=== PATIENT | female | born 1975 | race Caucasian/White ===

== ENCOUNTER 2019-08-06 08:32 | Observation (INO) ==
[2019-08-06] MEDS ORDERED: chlorproMAZINE 25 MG TABLET PO PRN (12:14)
[2019-08-06] MEDS ORDERED: ALPRAZolam 0.25 MG TABLET PO PRN (12:14)
[2019-08-06] MEDS ORDERED: LACTULOSE 20 GM/30 ML UDCUP PO PRN (12:14)
[2019-08-06] MEDS ORDERED: MAGNESIUM HYDROXIDE SUSP 30 ML UDCUP PO PRN (12:14)
[2019-08-06] MEDS ORDERED: MYLANTA/LIDO VISC 2:1 300 ML BOTTLE SWISH/SPIT PRN (12:14)
[2019-08-06] MEDS ORDERED: PROMETHAZINE INJ 25 MG in SODIUM CHLORIDE 0.9% 50 ML IV PRN (12:14)
[2019-08-06] MEDS ORDERED: diphenhydrAMINE CAP 25 MG CAPSULE PO PRN (12:14)
[2019-08-06] MEDS ORDERED: BENZTROPINE 2 MG/2 ML AMP IV PRN (12:14)
[2019-08-06] MEDS ORDERED: MYLANTA/LIDO VISC 2:1 300 ML BOTTLE SWISH/SWAL PRN (12:14)
[2019-08-06] MEDS ORDERED: ACETAMINOPHEN 325 MG TABLET PO PRN (12:14)
[2019-08-06] MEDS ORDERED: ALUMINUM/MAGNES/SIMETH MAX STR 30 ML UDCUP PO PRN (12:14)
[2019-08-06] MEDS ORDERED: LOPERAMIDE 2 MG CAPSULE PO PRN ×2 (12:14)
[2019-08-06] MEDS ORDERED: TEMAZEPAM 7.5 MG CAPSULE PO PRN (12:14)
[2019-08-06] MEDS ORDERED: chlorproMAZINE INJ 50 MG in SODIUM CHLORIDE 0.9% 100 ML IV PRN (12:14)
[2019-08-06] MEDS ORDERED: guaiFENesin 200 MG/10 ML UDCUP PO PRN (12:14)
[2019-08-06] MEDS ORDERED: chlorproMAZINE INJ 25 MG in SODIUM CHLORIDE 0.9% 100 ML IV PRN (12:14)
[2019-08-06] MEDS ORDERED: traMADol 50 MG TABLET PO PRN (12:14)
[2019-08-06] MEDS ORDERED: ONDANSETRON 4 MG/2 ML VIAL IV PRN (12:14)
[2019-08-06] MEDS ORDERED: ENOXAPARIN 150 MG/ML SYRINGE SUBCUT SCH (12:30)
[2019-08-06 12:39] LABS: Basophils # 0.1 10*3/uL (0.0-0.2); Basophils % 0.6 % (0.0-0.8); Eosinophils # 0.1 10*3/uL (0.0-0.87); Eosinophils % 1.2 % (0.00-10.9); Hematocrit 35.7 VOL% (35.7-47.0); Hemoglobin 11.3 GM/DL (12.0-16.0); Immature Granulocytes % 0.4 %; Immature Granulocytes Absolute 0.04 #; Lymphocytes # 2.2 10*3/uL (1.4-4.0); Lymphocytes % 20.5 % (21.3-54.2); Mean Corpuscular HGB Conc 31.7 GM/DL (32-36); Mean Corpuscular Volume 86.7 FL (87-102); Mean Platelet Volume 9.5 FL (9.6-12.0); Neutrophils % 72.3 % (38.7-73.9); Platelet Count 359 T/CUMM (130-400); Red Blood Count 4.12 MC/CUMM (3.8-5.5); Red Cell Distribution Width 14.6 % (9.3-17.3); White Blood Count 10.9 T/CUMM (4-12)
[2019-08-06 12:56] LABS: Calcium 8.5 MG/DL (8.5-10.1); Osmolality,Calculated 273.8 MOS/KG (273-304)
[2019-08-06 13:02] LABS: INR 0.9; PT Patient Result 10.2 SECS (9.6-12.2); Partial Thromboplastin Time 23.7 SECS (20.8-36.0)
[2019-08-06] MEDS ORDERED: POTASSIUM CHLORIDE 20 MEQ TABLET PO PRN (13:12)
[2019-08-06] MEDS: RIVAROXABAN 15 MG TABLET PO SCH (20:30)
[2019-08-07 04:09] VITALS: BP 109/64
[2019-08-07] MEDS: RIVAROXABAN 15 MG TABLET PO SCH (08:55)
[2019-08-07] MEDS ORDERED: LOSARTAN/HCTZ 50-12.5 MG TABLET PO SCH (09:00)
[2019-08-07] MEDS ORDERED: PANTOPRAZOLE 40 MG TABLET PO SCH (09:00)
[2019-08-08 16:36] LABS: DRVVT Screen Ratio 0.8 ratio (0.0 - 1.1); INR 1.1
[2019-08-11 00:31] LABS: FACV Specimen Whole Blood
[2019-08-12 12:01] LABS: PTNT Reviewed By SEE COMMENTS
== END 2019-08-07 09:45 | disposition home or self-care (01) ==
LOC: N.CT 08:32 → N.4E 08:32
PROVIDERS: ADMIT Specialist; ATTEND Specialist